=== PATIENT | male | born 1970 | race Caucasian/White ===

== ENCOUNTER → 2019-08-20 | Outpatient (CLI) | payer BC ==
--- NOTE | 2019-08-20 10:22 | PCVCIMAG ---
EXAM: BILATERAL RENAL ULTRASOUND AND BILATERAL RENAL DUPLEX INDICATION: Hypertension FINDINGS: Right kidney: Length measures 11.2 cm. No hydronephrosis or extensive renal scarring. Right renal duplex: Adequate technical quality. No sonographic evidence of renal artery stenosis. The aortic to renal artery ratio is 1.5. The renal vein is patent. Left kidney: Length measures 11.3 cm. No hydronephrosis or extensive renal scarring. Left renal duplex: Adequate technical quality. No sonographic evidence of renal artery stenosis. The aortic to renal artery ratio is 1.2. The renal vein is patent. Bladder: No obvious abnormalities. IMPRESSION: No significant renal artery stenosis. No hydronephrosis bilaterally. LOC:[id number]
== END | disposition home or self-care (01) ==
LOC: PCVCIMAG 08:14
PROVIDERS: ATTEND Internal Medicine Cardiovascular Disease
DX: I10 Essential (primary) hypertension (principal)
CPT/HCPCS: 76770; 93975

== ENCOUNTER → 2019-08-25 | Outpatient (CLI) | payer BC ==
--- NOTE | 2019-08-25 15:52 | PCVCIMAG ---
APPROVED REPORT Study performed: 08/25/2019 14:57:25 EXAM: Comprehensive 2D, Doppler, and color-flow Echocardiogram Patient Location: Echo lab Status: routine BSA: 2.35 HR: 66 bpmBP: 130/86 mmHg Rhythm: NSR Other Information Study Quality: Adequate Risk Factors: Cardiac Risk Factors: HTN Indications Abnormal ECG 2D Dimensions IVSd: 10.95 (7-11mm) LVDd: 45.18 mm PWd: 12.12 (7-11mm) LVDs: 30.72 (25-40mm) Left Atrium: 34.91 (27-40mm) Aortic Root: 29.70 mm LV Single Plane 4CH: 59.54 % LV Single Plane 2CH: 68.01 % Biplane EF: 64.3 % Volumes Left Atrial Volume (Systole) Single Plane 4CH: 51.02 mLSingle Plane 2CH: 65.42 mL LA ESV Index: 26.00 mL/m2 Aortic Valve AoV Peak Shola.: 1.46 m/s AO Peak Gr.: 8.54 mmHgLVOT Max P.73 mmHg LVOT Max V: 1.30 m/s Mitral Valve E/A Ratio: 1.75 MV Decel. Time: 176.63 ms MV E Max Shola.: 0.77 m/s MV A Shola.: 0.44 m/s IVRT: 93.43 ms Pulmonary Valve PV Peak Shola.: 1.12 m/sPV Peak Gr.: 5.03 mmHg Pulmonary Vein P Vein S: 0.43 m/sP Vein A: 0.38 m/s P Vein D: 0.59 m/sP Vein A Dur.: 155.7 msec Tricuspid Valve TR Peak Shola.: 2.60 m/s TR Peak Gr.: 27.02 mmHg Left Ventricle The left ventricle is normal size. There is normal LV segmental wall motion. There is normal left ventricular wall thickness. Left ventricular systolic function is normal. The left ventricular ejection fraction is within the normal range. LVEF is 60-65%. The left ventricular diastolic function is normal. Right Ventricle The right ventricle is normal size. The right ventricular systolic function is normal. Atria The left atrium size is normal. The right atrium size is normal. Aortic Valve The aortic valve is normal in structure. No aortic regurgitation is present. There is no aortic valvular stenosis. Mitral Valve The mitral valve is normal in structure. Trace mitral regurgitation. No evidence of mitral valve stenosis. Tricuspid Valve The tricuspid valve is normal in structure. Mild tricuspid regurgitation with PAP of 34 mmHg. Pulmonic Valve The pulmonary valve is normal in structure. There is no pulmonic valvular regurgitation. Great Vessels The aortic root is normal in size. IVC is normal in size and collapses >50% with inspiration. Pericardium There is no pericardial effusion. There is no pleural effusion. <Conclusion> The left ventricle is normal size. There is normal left ventricular wall thickness. Left ventricular systolic function is normal. The right ventricle is normal size. The left atrium size is normal. The aortic valve is normal in structure. Trace mitral regurgitation. Mild tricuspid regurgitation with PAP of 34 mmHg.
--- NOTE | 2019-08-25 16:00 | PCVCIMAG ---
APPROVED REPORT Study performed: 08/25/2019 15:20:09 Exam: Stress Echocardiogram Indication: abn ekg, htn, bradycardia Patient Location: Echo lab Stress Nurse: Pita Pitts RN Status: routine Ht: 6 ft 3 in HR: 82 bpm BP: 130/86 mmHg Rhythm: NSR Procedure The patient underwent an Exercise Stress Test using the Mario Protocol. Blood pressure, heart rate, and EKG were monitored. An Echocardiogram was performed by inventory technician in four stages in quad fashion. At peak stress, four selected images were obtained and placed side by side with resting images for comparison. Stress Test Details Stress Test: Exercise stress testing was performed using a Mario protocol. HR Resting HR: 86 bpmMax Heart Rate (APMHR): 172 bpm Max HR Achieved: 184 bpmTarget HR (85% APMHR): 146 bpm % of APMHR: 106 Recovery HR: 108 bpm HR response to stress: Normal HR response to stress BP Resting BP: 130/86 mmHg Max BP: 204/86 mmHg Recovery BP: 172/80 mmHg BP response to stress: Normal blood pressure response to stress. ECG Resting ECG: Sinus Rhythm Stress ECG: Sinus Rhythm ST Change: Nondiagnostic resting ST abnormalities Arrhythmia: PVCs Recovery ECG: Sinus Rhythm Recovery Arrhythmia: None Clinical Reason for Termination: Maximal effort Stress Symptoms: Dyspnea Exercise duration: 10 min 9 sec Highest Stage Achieved: Stage 4: 4.2 mph at 16% grade. Exercise capacity: 13.4 METs Overall Exercise Capacity for Age: Normal Scale: Active Angina Score: None Pre-Stress Echo The resting Echocardiogram showed normal left ventricular contractility with an estimated Ejection Fraction of about >55%. The resting echocardiogram demonstrated normal wall motion in all wall segments. Normal wall motion in all segments on baseline images. Post-Stress Echo The stress Echocardiogram showed normal left ventricular contractility with an estimated Ejection Fraction of about 65%. Compared to rest, there were no stress-induced wall motion abnormalities. Normal augmentation of wall motion in all segments on post stress images. Clinical No clinical or ECG evidence for ischemia. Conclusion Clinical Response: Non-ischemic Exercise Capacity: Average Stress ECG Response: Non-ischemic Stress Echo Images: Non-ischemic The left ventricle is normal in size and wall thickness in both the rest and stress images. Other Information Study Quality: Adequate <Conclusion> The left ventricle is normal in size and wall thickness in both the rest and stress images.
== END | disposition home or self-care (01) ==
LOC: PCVCIMAG 14:54
PROVIDERS: ATTEND Internal Medicine Cardiovascular Disease
DX: I07.1 Rheumatic tricuspid insufficiency (principal); I10 Essential (primary) hypertension; Z82.49 Family history of ischemic heart disease and other diseases of the circulatory system
CPT/HCPCS: 93306; 93351